=== PATIENT | female | born 1945 | race Caucasian/White ===

== ENCOUNTER → 2021-06-22 | Day surgery (SDC) | payer MEDICARE, OTHER ==
[~2021-06-22] VITALS: Ht 158.8 cm; Wt 91.3 kg
[~2021-06-22] MED LIST: ASPIRIN325 MG PO; CELEXA20 MG PO; DAILY VALUE1 EACH PO; HCTZ25 MG PO; K-DUR20 MEQ PO; KETOROLAC TROME10 MG PO; LIPITOR 10MG TA10 MG PO; LOPRESSOR50 MG PO; MAG-OXIDE 400M400 MG PO; NORCO 5-325 TA1 EACH PO; NORVASC5 MG PO; OS-CAL500 MG PO; SYNTHROID50 MCG PO; ZYRTEC10 MG PO
== END | disposition home or self-care (01) ==
LOC: FAS 07:20
DX: Z12.11 Encounter for screening for malignant neoplasm of colon (principal); D12.3 Benign neoplasm of transverse colon; K57.30 Diverticulosis of large intestine without perforation or abscess without bleeding; K64.8 Other hemorrhoids; K58.9 Irritable bowel syndrome, unspecified; E55.9 Vitamin D deficiency, unspecified; I25.10 Atherosclerotic heart disease of native coronary artery without angina pectoris; I10 Essential (primary) hypertension; F32.9 Major depressive disorder, single episode, unspecified; M19.90 Unspecified osteoarthritis, unspecified site; J30.9 Allergic rhinitis, unspecified; Z79.82 Long term (current) use of aspirin; Z79.899 Other long term (current) drug therapy; Z88.8 Allergy status to other drugs, medicaments and biological substances; Z95.5 Presence of coronary angioplasty implant and graft
CPT/HCPCS: 88305; J2250; J2704; J7120